=== PATIENT | male | born 1960 | race Caucasian/White ===

== ENCOUNTER 2019-05-27 10:11 | Emergency (ER) | payer BC ==
[~2019-05-27] VITALS: Ht 190.5 cm; Wt 105.7 kg
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
[2019-05-27] MEDS ORDERED: MORPHINE SULFATE INJ 2 MG/ML DISP.SYRIN IV ONE (10:30)
[2019-05-27] MEDS ORDERED: IV NS 0.9% 500 ML BAG IV ONE (10:30)
[2019-05-27] MEDS ORDERED: ONDANSETRON HCL/PF 4 MG/2 ML VIAL IVP ONE (10:30)
[2019-05-27] MEDS ORDERED: ONDANSETRON HCL/PF 4 MG/2 ML VIAL ONE (10:31)
[2019-05-27] MEDS ORDERED: MORPHINE SULFATE INJ 4 MG/ML DISP.SYRIN ONE (10:32)
[2019-05-27 10:37] LABS: BASOPHILS # (AUTO) 0.1 /CMM (0.0-0.2); EOSINOPHILS % (AUTO) 0.3 % (0.0-6.0); HEMATOCRIT 44 % (39-51); HEMOGLOBIN 15.1 g/dL (13.5-17.5); LYMPHOCYTES # (AUTO) 1.3 /CMM (0.8-4.8); MEAN CORPUSCULAR HGB CONC 34 g/dl (31.0-36.0); MEAN CORPUSCULAR VOLUME 89 fL (80-96); MONOCYTES # (AUTO) 0.5 /CMM (0.1-1.30); MONOCYTES % (AUTO) 5.8 % (2.0-12.0); NEUTROPHILS # (AUTO) 6.3 /CMM (1.8-8.9); NEUTROPHILS % (AUTO) 76.9 % (43.0-81.0); PLATELET COUNT (AUTO) 343 /CMM (150-450); RED BLOOD CELL COUNT(AUTO) 4.95 MIL/uL (4.5-6.0); WHITE BLOOD COUNT (AUTO) 8.2 K/uL (4.3-11.0)
[2019-05-27 10:44] LABS: CALCIUM, SERUM 8.7 mg/dL (8.5-10.1); CARBON DIOXIDE 26 mmol/L (21-32); CHLORIDE 107 mmol/L (98-107); CREATININE 1.6 mg/dL (0.6-1.3); GLUCOSE 136 mg/dL (74-106); POTASSIUM 4.7 mmol/L (3.5-5.1); SODIUM SERUM 142 mmol/L (136-145); UREA NITROGEN, BLOOD 21 mg/dL (7-18)
--- NOTE | 2019-05-27 10:52 | NUR ---
BUSINESS EDUCATION TEACHER AT BEDSIDE
--- NOTE | 2019-05-27 11:10 | NUR ---
ASSUMING CARE OF PT, REC'D REPORT FROM [facility]. PT RESTING COMFORTABLY, AWAITING IMAGING RESULTS.
[2019-05-27] MEDS ORDERED: HYDROMORPHONE 1 MG/1 ML DISP.SYRIN ONE (11:59)
[2019-05-27] MEDS ORDERED: HYDROMORPHONE INJ 0.5 MG/0.5 ML SYRINGE IV ONE (12:00)
--- NOTE | 2019-05-27 12:54 | NUR ---
IV removed. Catheter intact and site benign. Pressure and 4x4 applied to site. No bleeding noted.Patient discharged to home in stable condition. Written and verbal after care instructions given. Patient verbalizes understanding of instruction.
[2019-05-27 13:03] VITALS: BP 105/62
== END 2019-05-27 12:50 | disposition home or self-care (01) ==
LOC: ER 10:13
DX: S22.42XA Multiple fractures of ribs, left side, initial encounter for closed fracture (principal); S80.212A Abrasion, left knee, initial encounter; S80.211A Abrasion, right knee, initial encounter; I10 Essential (primary) hypertension; Z88.6 Allergy status to analgesic agent; V19.9XXA Pedal cyclist (driver) (passenger) injured in unspecified traffic accident, initial encounter; Y93.55 Activity, bike riding; Y92.89 Other specified places as the place of occurrence of the external cause; Y99.8 Other external cause status
CPT/HCPCS: 36415; 71045; 71250; 74176; 80048; 84484; 85025; 93005; 96374; 96375; 99284; J1170; J2270; J2405; J7040

== ENCOUNTER 2025-08-13 08:10 | Inpatient (IN) | payer BC, MEDICARE ==
[~2025-08-13] VITALS: Ht 190.5 cm; Wt 110.2 kg
[2025-08-13] MEDS ORDERED: ASPIRIN 81 MG TAB.CHEW ONE ×2 (08:36)
[2025-08-13] MEDS: ASPIRIN 81 MG TAB.CHEW PO ONE (08:38)
[2025-08-13 08:53] LABS: PLATELET COUNT (AUTO) 233 K/uL (150-450); RED BLOOD CELL COUNT(AUTO) 4.94 MIL/uL (4.5-6.0); RED CELL DISTRIBUTION WIDTH 13.2 % (11.5-15.0); WHITE BLOOD COUNT (AUTO) 11.5 K/uL (4.3-11.0)
[2025-08-13 09:00] LABS: CALCIUM, SERUM 8.7 mg/dL (8.5-10.1); CREATININE 1.0 mg/dL (0.6-1.3); SODIUM SERUM 137 mmol/L (136-145); UREA NITROGEN, BLOOD 21 mg/dL (7-18)
[2025-08-13 09:13] LABS: ASPARTATE AMINOTRANSFERASE 97 U/L (15-37); NT-PRO BNP 48 pg/mL (0-125); TOTAL PROTEIN, SERUM 6.4 g/dL (6.4-8.2)
[2025-08-13] MEDS ORDERED: NITROGLYCERIN 0.4 MG/TAB BOTTLE ONE ×2 (09:23→11:35)
[2025-08-13] MEDS: NITROGLYCERIN 0.4 MG/TAB BOTTLE SL ONE ×3 (09:25→11:36)
[2025-08-13] MEDS ORDERED: Z GUARD REMEDY 4 OZ OINT TP PRN (10:00)
[2025-08-13] MEDS ORDERED: MAGNESIUM HYDROXIDE 30 ML UDC PO PRN (10:00)
[2025-08-13] MEDS ORDERED: ONDANSETRON HCL/PF 4 MG/2 ML VIAL IVP PRN (10:00)
[2025-08-13 10:05] VITALS: O2SAT 99
[2025-08-13 11:00] VITALS: BP 147/91; TEMP 97.3; O2SAT 99
[2025-08-13] MEDS ORDERED: IOHEXOL-350 100 ML VIAL IV ONE (11:14)
[2025-08-13] MEDS ORDERED: IV NS 0.9% 250 ML IV ONE (11:14)
[2025-08-13] MEDS ORDERED: METOPROLOL TARTRATE INJ 5 MG/5 ML AMPUL IVP PRN (11:30)
[2025-08-13] MEDS ORDERED: VALS160T2 PO (15:56)
[2025-08-13] MEDS ORDERED: DILT90TA10 PO (15:56)
[2025-08-13 16:00] VITALS: BP 148/95; TEMP 97.7; O2SAT 97
[2025-08-13] MEDS: MAG HYDROX/AL HYDROX/SIMETH 30 ML UDC PO PRN (16:56)
[2025-08-13] MEDS: ACETAMINOPHEN 325 MG TABLET PO PRN (16:59)
[2025-08-13] MEDS: VALSARTAN 80 MG TABLET PO SCH (17:33)
[2025-08-13 20:00] VITALS: BP 146/104; TEMP 97.9; O2SAT 97
[2025-08-13] MEDS: TEMAZEPAM 15 MG CAPSULE PO PRN (22:04)
[2025-08-14] VITALS: BP 142/98; TEMP 98.1; O2SAT 97
[2025-08-14 04:00] VITALS: BP 138/91; TEMP 97.7; O2SAT 95
[2025-08-14 06:24] LABS: PLATELET COUNT (AUTO) 224 K/uL (150-450); RED BLOOD CELL COUNT(AUTO) 4.97 MIL/uL (4.5-6.0); RED CELL DISTRIBUTION WIDTH 13.5 % (11.5-15.0); WHITE BLOOD COUNT (AUTO) 6.8 K/uL (4.3-11.0)
[2025-08-14 06:37] LABS: CALCIUM, SERUM 8.7 mg/dL (8.5-10.1); CREATININE 0.9 mg/dL (0.6-1.3); PHOSPHORUS 3.0 mg/dL (2.5-4.9); SODIUM SERUM 143.0 mmol/L (136-145); UREA NITROGEN, BLOOD 15.0 mg/dL (7-18)
[2025-08-14 06:52] LABS: LDL 90.0 mg/dL (0-99)
[2025-08-14 07:30] VITALS: BP 176/108; TEMP 97.5; O2SAT 96
[2025-08-14] MEDS: PANTOPRAZOLE 40 MG TABLET.DR PO SCH (07:38)
[2025-08-14] MEDS: ASPIRIN 81 MG TAB.CHEW PO SCH (08:01)
[2025-08-14] MEDS: DILTIAZEM HCL CD 180 MG PO SCH (08:03)
[2025-08-14 08:40] LABS: ASPARTATE AMINOTRANSFERASE 115.0 U/L (15-37); TOTAL PROTEIN, SERUM 6.1 g/dL (6.4-8.2)
[2025-08-14] MEDS ORDERED: VALSARTAN 80 MG TABLET PO SCH (09:00)
[2025-08-14 09:12] VITALS: BP 139/92
[2025-08-14] MEDS ORDERED: TEMA15CA5 PO (10:53)
== END 2025-08-14 13:54 | disposition home or self-care (01) | DRG 446 ==
LOC: ER 08:12 → TELE 10:16
PROVIDERS: ADMIT Nurse Practitioner Acute Care; ATTEND Nurse Practitioner Acute Care
DX: K80.20 Calculus of gallbladder without cholecystitis without obstruction (principal); I10 Essential (primary) hypertension; I48.91 Unspecified atrial fibrillation; K76.0 Fatty (change of) liver, not elsewhere classified; E80.6 Other disorders of bilirubin metabolism; R74.01 Elevation of levels of liver transaminase levels; R07.9 Chest pain, unspecified; Z98.890 Other specified postprocedural states
CPT/HCPCS: 36415; 71045-TC; 75574; 76700-TC; 80048-TC; 80061-TC; 80076-TC; 83690-TC; 83735-TC; 83880; 84100-TC; 84443-TC; 84484-TC; 85025-TC; 93307-TC; G0378; J7050; Q9967